=== PATIENT | female | born 1990 | race Caucasian/White ===

== ENCOUNTER → 2016-11-27 04:16 | Observation (INO) ==
--- NOTE | 2016-11-27 04:10 | OB/GYN Progress Note ---
Date of Encounter: 11/27/16 Time of Encounter: 04:07 - Assessment and Plan (1) 25 weeks gestation of Current Visit: Yes Status: Acute 26y/o @ 25 weeks presents to L&D with vag bleeding, she has a low lying placenta, SSE done and no blood noted in vault, cervix closed, NST reactive, ok for discharge
== END | disposition home or self-care (01) ==
LOC: 1NENULAB
PROVIDERS: ADMIT Student in an Organized Health Care Education/Training Program; ATTEND Student in an Organized Health Care Education/Training Program

== ENCOUNTER 2017-02-28 06:00 | Inpatient (IN) ==
[2017-02-28] MEDS ORDERED: Ondansetron 4 MG/2 ML VIAL IVP PRN ×2 (06:12→14:20)
[2017-02-28] MEDS ORDERED: Famotidine 20 MG/2 ML VIAL IVP PRN (06:12)
[2017-02-28] MEDS ORDERED: *HR* Nalbuphine 20 MG/ML AMPUL IVP PRN (06:12)
[2017-02-28] MEDS ORDERED: Naloxone 0.4 MG/ML INJ IVP PRN ×2 (06:12→14:20)
[2017-02-28] MEDS ORDERED: Metoclopramide 10 MG/2 ML VIAL IVP PRN (06:12)
[2017-02-28] MEDS ORDERED: miSOPROStol 100 MCG TABLET PO PRN (06:12)
[2017-02-28] MEDS ORDERED: Ringers Solution, Lactated 1,000 ML IVC SCH (06:15)
[2017-02-28 07:05] LABS: Amphetamine Screen,Urine Negative ng/mL (Cutoff=1000); Barbiturate Screen,Urine Negative ng/mL (Cutoff=200); Benzodiazepines Screen,Urine Negative ng/mL (Cutoff=200); Cannabinoid Screen,Urine Negative ng/mL (Cutoff = 50); Cocaine Screen,Urine Negative ng/mL (Cutoff= 300); Opiate Screen,Urine Negative ng/mL (Cutoff=300)
[2017-02-28 07:10] LABS: Basophils % 0.4 %; Eosinophils # 0.2 K/mcL (0.0-0.6); Eosinophils % 1.7 %; Hemoglobin 12.4 g/dL (11.5-15.4); Immature Granulocytes % 0.6 % (0-4); Lymphocytes # 2.7 K/mcL (0.6-4.6); Mean Corpuscular HGB Conc 33.5 g/dL (31.6-35.5); Mean Corpuscular Hemoglobin 30.4 pg (28.0-33.3); Mean Corpuscular Volume 90.7 fL (83.0-100.0); Mean Platelet Volume 9.3 fL (9.4-12.4); Monocytes # 0.9 K/mcL (0.0-1.3); Monocytes % 7.7 %; Neutrophils # 7.4 K/mcL (1.6-8.9); Platelet Count 248 K/mcL (140-400); Red Blood Count 4.08 M/mcL (3.82-4.97); Red Cell Distribution Width 13.7 % (11.5-14.5); Segmented Neutrophils % 65.6 %
--- NOTE | 2017-02-28 07:11 | OB/GYN History & Physical ---
Date of Encounter: 02/28/17 Time of Encounter: 07:40 Assessment and Plan (1) 39 weeks gestation of Current visit: Yes Status: Acute Plan: - admit to L&D - begin FHT - induction with Cytotec initiated - expectant management with possible augmentation with AROM and Pitocin - anticipate (2) Elective induction of labor planned Current visit: Yes Status: Acute (3) Hepatitis C Current visit: Yes Status: Acute Qualifiers: Viral hepatitis chronicity: unspecified Hepatic coma status: without hepatic coma Qualified Code(s): B19.20 - Unspecified viral hepatitis C without hepatic coma (4) Tobacco abuse Current visit: Yes Status: Acute (5) Grand multipara in labor in third trimester Current visit: Yes Status: Acute History of Present Illness Chief complaint: IOL HPI: Patient is a 26 y/o female at 39+3 weeks presented to labor and delivery for induction of labor. Patient's is complicated by tobacco use, suboxone use, Hep C, and grand multip. Reports active movement. Patient denies vaginal bleeding, contractions, leakage of fluids. Denies N/V, changes in vision, CARPENTER. Patient follows up with Dr. Segal. PNL: Blood type O+. GBS neg, RI, HBsAG neg, HIV neg. RPR neg. Past Med Surg Social Fam HX - Past Medical History Source: patient, old records reviewed Medical history: hepatitis (Hep C ) Psychiatric history: no psych history, other (suboxone use, hx of narcotic abuse ) - Past Surgical History Surgical History: appendectomy, other - Social History Smoking Status: Current every day smoker Packs per day: 1/2 pack Smokeless Tobacco Status: No Alcohol use: none Drug use: none - Family History Mother History Unknown: Yes Family Member Ethnicity: Non- Living Status: Still Living Obstetrical History - Pregnancies : 6 Para: 4 Term: 4 : 0 Ab's: 1 Livin - History/Complications History/Complications: Total pregnancies 6. Total living children 4. Miscarriage(s) 1. # 1: full term - induced at 40 weeks. Female; weight 5lb 4 oz. # 2: 38 weeks; female, weight 5 lb 6 oz. # 3 tubal pregnanacy--- 2008 left ??. # 4: 2008-- vag del male 5 lbs 8 oz-- at [place] [place]-- . # 5: 05-19-2010 vag del female 5 lbs 8 oz at [place] no complications-- short labor. Medications and Allergies Pnv62/FA/Om3/Dha/Epa/Fish Oil [[facility] Gummy Vitamins] 1 each PO DAILY 07/13 [History] Buprenorphine HCl [Subutex] 8 mg SL BID 02/28/17 [History] 3 Allergy/AdvReac Type Severity Reaction Status Date / Time No Known Allergies Allergy Verified 02/28/17 06:25 Review of System OB All systems PM: reviewed and no additional remarkable complaints except as stated Exam - Vital Signs Vital signs: BP: 125/55, HR: 73, afebrile - Constitutional Constitutional: well developed, well nourished, no acute distress, average body habitus - HEENT HEENT: Normocephaly, Mucus Membranes Moist - Neck Neck exam: full ROM - Lungs Respiratory exam: CTAB - Cardiovascular Cardiovascular exam: RRR - Breasts Breast: bilateral: normal - Abdomen Abdomen: Present: non tender. Absent: diffuse tenderness - Extremities Extremities exam: normal inspection - Vulva Vulva: bilateral: normal - Vagina Vagina: Present: normal moisture - Cervix Dilation: 2 (per nursing) Effacement: 80 (per nursing) Station: -1 - Uterus Uterus exam: Present: normal size Results Result Diagrams: 02/28/17 06:44 All other labs normal. - VTE Reasons for not Prescribing Prophylaxis: Treatment not Indicated - Low risk for VTE - Attending Attestation I examined this patient and my medical decision-making was reviewed with the Resident Physician. I agree with the documented findings, disposition and treatment plan as described. Margie Clark CNM
[2017-02-28] MEDS ORDERED: D5% in 0.45% NACL 1,000 ML IVC SCH (07:15)
[2017-02-28 07:33] LABS: Phencyclidine Screen,Urine Negative ng/mL (Cutoff=25)
[2017-02-28] MEDS ORDERED: Terbutaline 1 MG/ML VIAL SQ ONE ×2 (08:03→08:16)
--- NOTE | 2017-02-28 10:36 | Anesthesia Evaluation PreOp ---
Date of Encounter: 02/28/17 Time of Encounter: 10:20 - Past History Planned Operation: LI Cardiac History: Denies any Significant Hx Pulmonary History: Smoker, Pack/yr (6pk/yr) DIETITIAN HELPER History: Denies Any Significant HX Other Medical History: Hepatic (Hep C), Other (hx heroine use, Subutex use) Anesthesia History: No Prior Anesthetic Complications, Past Anesthesia ( previous epidurals, Tubal ) : Yes Alcohol Use: none Drug use: none (hx heroine use, currently using subutex), other Medications and Allergies Pnv62/FA/Om3/Dha/Epa/Fish Oil [[facility] Gummy Vitamins] 1 each PO DAILY 07/13 [History] Buprenorphine HCl [Subutex] 8 mg SL BID 02/28/17 [History] 3 Allergy/AdvReac Type Severity Reaction Status Date / Time No Known Allergies Allergy Verified 02/28/17 06:25 - Meds/Allergy Pre-op Review Medications Reviewed: Yes Allergies Reviewed: Yes Beta Blockers on Current Med List: No Anesthesia Results - Labs 02/28/17 06:44 Anesthesia Exam BP 110/63 P 71 T 98.1 R 16 Height: 5'4" Weight: 62.0kg NPO (# of Hours): 5hrs solids, clear liquids 0hrs Pain Scale: 2 Pain Scale Used: Numeric (1 - 10) - HEENT Pupil (Motor): Pupils equal Mallampati: II Teeth: Poor dentition Oral Opening: Greater than 3 - DIETITIAN HELPER LOC: Oriented DIETITIAN HELPER Motor: Normal RUE, Normal LUE, Normal RLE, Normal LLE, Normal Face DIETITIAN HELPER Sensory: Normal: RUE, LUE, RLE, LLE, Face - Cardiac Rhythm: Regular Murmur: None JVD: No Carotid Bruit: No - Pulmonary Breath Sounds: left Rhonchi, bilateral Clear Respiratory Effort: Symmetrical Anesthesia Assess/Plan ASA Score: 2 Modified [place] Scale for Level of Consciousness: Cooperative, oriented, and tranquil Anesthetic Plan: Regional Autologous Blood: No Monitoring Plan: Standard Monitors Recovery Plan: Other
--- NOTE | 2017-02-28 11:21 | OB Labor Progress Note ---
Date of Encounter: 02/28/17 Time of Encounter: 11:18 Labor Progress Note - Subjective Subjective: Patient breathing through contractions - Vital Signs Vital Signs: VSS - Cervix Cervix: 2/70/0 - Heart Tones Heart Tones: 155 moderate variability and 15 x15 accels. No decels - [place] Cent[place]: Contractions every 2-4 minutes - Plan Plan: Routine labor management Failed cytotec due to intolerance; will start pitocin GBS negative May have fentanyl and/or epidural upon request for pain control Anticipate vaginal delivery POC per consult with Dr Colón
[2017-02-28] MEDS: Oxytocin 20 units/ LR 1000 mL 20 UNIT/1,000 ML BAG IVC SCH ×2 (11:31→18:52)
--- NOTE | 2017-02-28 14:01 | OB Labor Progress Note ---
Date of Encounter: 02/28/17 Time of Encounter: 13:59 Labor Progress Note - Subjective Subjective: Patient resting comfortably in bed with peanut ball in place. - Vital Signs Vital Signs: VSS - Cervix Cervix: 2-/80/0 - Heart Tones Heart Tones: 140 moderate variability and 15 x 15 accels no decels - [place]: Contractions every 2 minutes lasting 45 seconds in length - Interventions Interventions: AROM for moderate amount of clear fluid. Shiav blood present with exam, bleeding stopped. IUPC placed without difficulty. Fetus and patient tolerated well. - Plan Plan: Continue routine management GBS negative Patient may have epidural upon request Continue pitocin for adequate contractions anticipate vaginal delivery POC per consult with Dr Colón
[2017-02-28] MEDS ORDERED: *HR* FentaNYL (PF) 100 MCG/2 ML VIAL EP ONE (14:20)
[2017-02-28] MEDS ORDERED: EPHEDrine 50 MG/ML VIAL IVP PRN (14:20)
[2017-02-28] MEDS ORDERED: Bupivacaine-MPF 0.25% 10 ML VIAL EP ONE (14:20)
[2017-02-28] MEDS ORDERED: Bupivacaine-MPF 0.25% 10 ML VIAL ONE (14:23)
[2017-02-28] MEDS ORDERED: *HR* FentaNYL (PF) 100 MCG/2 ML VIAL ONE (14:23)
[2017-02-28] MEDS ORDERED: Epidural Premix (fent/bupiv) 110 ML EP ONE (14:25)
[2017-02-28] MEDS ORDERED: Epidural Premix (fent/bupiv) 110 ML EP SCH (14:30)
--- NOTE | 2017-02-28 14:52 | Anesthesia Procedures ---
Date of Encounter: 02/28/17 Time of Encounter: 14:25 Procedures: Anesthesia - Epidural/Spinal Patient ID/Chart reviewed: Yes Patient examined: Yes OB Eval: Gestational age: 38 OB Eval: : 6 OB Eval: Hx Para: 5 OB Eval: Dilated at (cm): 2 OB Eval: Contractions: Non-stressed pattern Consent Obtained: Yes Supplemental Oxygen: None/Room Air Site Prep: Aseptic Technique, Sterile prep and drape, Povidone-Iodine 1% Patient position: upright Local Anesthetic: Lidocaine 1% Amount of Local Anesthetic used: 3 Touhy Needle Gauge: 18 Touhy Needle Depth (cm): 5 Catheter Depth at Skin (cm): 14 Test Dose (1.5% Lido + Epi): Volume given (mls): 3 Test Dose Result: Negative Loading Dose: 0.25% Marcaine (mls): 10 Loading Dose: Fentanyl (mcg): 100 Loading Dose Administered: Thru Catheter Infusion Med: 0.125% Bupivacaine w/ 2 mcg/ml Fentanyl Infusion Rate (mls/hr): [address]: Tegaderm, Tape Interspace Used: L4-L5 Loss of Resistance (TYRON): Yes Blood: No CSF: No Paresthesia: No Procedure: LI placed 1st pass without any immediate noted complications. VSS throughout. FHT 130s Vitals + FHT's: 1425 P 101 BP 119/86 1445 P 76 BP 114/71 R 16 FHT 130s
--- NOTE | 2017-02-28 18:08 | OB/GYN Procedure Note ---
Delivery - Delivery Date: 02/28/17 Provider: Munira Clark Intrapartum events: none Delivery induction: misoprostol Delivery augmentation: rupture of membranes, pitocin Delivery monitor: external FHT, external uterine, internal uterine Anesthesia: epidural Estimated Blood Loss: 200 - (s) A Infant Delivery Date: 02/28/17 Delivery Time: 17:39 Presentation: vertex Position: LEATHA Route of delivery: Gender: Female Viability: Viable Pounds: 6 Ounces: 8 Weight Gram: 2.945 kg at 1 minute: 8 at 5 mins: 9 Shoulder Dystocia: not encountered Specimens collected: cord blood Placenta: spontaneous Cord: 3 umbilical vessels (a) - Repair Episiotomy: none Laceration Description: None, Superficial - Complications Delivery complications: none Delivery comments: of vigorous viable female infant in the LEATHA position. Shoulders delivered easily. No nuchal. No meconium. No shoulder dystosia. Infant placed on mom's belly. Apgars 8/9 at 1 and 5 minutes. Cord double clamped and cut after pulsations ceased. Placenta delivered spontaneously appears grossly intact. 3 vessel cord present. Upon peritoneal inspection, several small superficial, hemostatic abrasions. Fundus firm and at u/2. EBL 200ml. delivery attended by Dr. Mirian Varma. Oh Clark CNM present in room for delivery. Dr. Colón notified. Infant and mother stable in recovery. Pericare instructions given to patient. - Disposition Mom disposition: stable in LDR disposition: stable in LDR
[2017-02-28] MEDS ORDERED: Benzocaine/Menthol 56 GM AEROSOL SPRAY TP PRN (19:26)
[2017-02-28] MEDS ORDERED: Acetaminophen 325 MG TABLET PO PRN (19:26)
[2017-02-28] MEDS ORDERED: Oxytocin 20 units/ LR 1000 mL 20 UNIT/1,000 ML BAG IVC SCH (19:26)
[2017-02-28] MEDS ORDERED: *HR* Buprenorphine HCl 8 MG TAB.SUBL SL SCH (21:00)
[2017-02-28] MEDS: *HR* Buprenorphine HCl 8 MG TAB.SUBL SL SCH (21:22)
[2017-02-28] MEDS: Ibuprofen 600 MG TABLET PO PRN (21:22)
[2017-03-01] MEDS: Ibuprofen 600 MG TABLET PO PRN (07:41)
[2017-03-01] MEDS: *HR* Buprenorphine HCl 8 MG TAB.SUBL SL SCH (07:42)
[2017-03-01 08:22] VITALS: BP 122/79
[2017-03-01] MEDS ORDERED: DHA PO SCH (09:00)
[2017-03-01] MEDS ORDERED: EPA PO SCH (09:00)
[2017-03-01] MEDS ORDERED: PNV62 PO SCH (09:00)
[2017-03-01] MEDS ORDERED: Prenatal Vit/FA 1 EACH TABLET PO SCH (09:00)
[2017-03-01] MEDS ORDERED: [UNRECOGNIZED DRUG - OTHER] PO SCH (09:00)
[2017-03-01] MEDS ORDERED: FISH OIL PO SCH (09:00)
--- NOTE | 2017-03-01 09:58 | Discharge Summary ---
Date of Encounter: 03/01/17 Time of Encounter: 09:55 - Discharge Diagnosis (1) Vaginal delivery Priority: Primary Status: Acute Comments: Pt meeting all milestones. She desires to guest today. (2) complicated by subutex maintenance, antepartum Priority: Secondary Status: Acute (3) Hepatitis C Priority: Secondary Status: Acute Qualifiers: Viral hepatitis chronicity: unspecified Hepatic coma status: without hepatic coma Qualified Code(s): B19.20 - Unspecified viral hepatitis C without hepatic coma (4) Tobacco abuse Priority: Secondary Status: Acute - Discharge Medications Prescriptions: Ibuprofen [Motrin] 600 mg PO Q6HR PRN #30 tablet PRN Reason: Cramping Docusate [Colace] 100 mg PO BID #30 capsule Home Medications: Pnv62/FA/Om3/Dha/Epa/Fish Oil [[facility] Gummy Vitamins] 1 each PO DAILY 07/13 [History] Buprenorphine HCl [Subutex] 8 mg SL BID 02/28/17 [History] Benzocaine/Menthol [place] [Dermoplast [place]] 1 appl TP QID PRN aerosol 03/01/17 [Rx] Docusate [Colace] 100 mg PO BID #30 capsule 03/01/17 [Rx] Ibuprofen [Motrin] 600 mg PO Q6HR PRN #30 tablet 03/01/17 [Rx] Allergies/Adverse Reactions: 3 Allergy/AdvReac Type Severity Reaction Status Date / Time No Known Allergies Allergy Verified 02/28/17 06:25 Data Procedures and tests throughout hospitalization: Laboratory Tests 02/28/17 02/28/17 06:44 06:44 WBC 11.2 H RBC 4.08 Hgb 12.4 Hct 37.0 MCV 90.7 MCH 30.4 MCHC 33.5 RDW 13.7 Plt Count 248 MPV 9.3 L Immature Gran % 0.6 Seg Neutrophils % 65.6 Lymphocytes % 24.0 Monocytes % 7.7 Eosinophils % 1.7 Basophils % 0.4 Neutrophils # 7.4 Lymphocytes # 2.7 Monocytes # 0.9 Eosinophils # 0.2 Basophils # 0.0 Urine Opiates Screen Negative Ur Barbiturates Screen Negative Ur Phencyclidine Scrn Negative Ur Amphetamines Screen Negative U Benzodiazepines Scrn Negative Urine Cocaine Screen Negative U Marijuana (THC) Screen Negative Date of admission: 02/28/17 06:10 Primary care physician: Marina Rucker CNP Consults: 02/28/17 19:26 Consult to Car Worker [CONS] Routine Reason for SW Consult: suboxone use Discharging clinician: Bobbi Christensen Anticipated date of discharge: 03/01/17 - Patient Status Disposition: Home, Self-Care Condition: Good Functional capacity at discharge: independent ambulation Overall status at discharge: patient is progressing back to baseline - Discharge Instructions Follow Up With: Mairna Rucker CNP [Primary Care Provider] - Steve Segal DO [Partnered Physician] - - Diet and Activity Activity: increase activity as tolerated Diet: regular diet Hospital Course Reason for admission: induction of labor Delivery: Episiotomy: none Laceration: none Other procedures: none complications: none Discharge diagnosis: IUP at term delivered baby: female Hospital course: - Delivery Date: 02/28/17 Provider: Munira Clark Intrapartum events: none Delivery induction: misoprostol Delivery augmentation: rupture of membranes, pitocin Delivery monitor: external FHT, external uterine, internal uterine Anesthesia: epidural Estimated Blood Loss: 200 - Infant (s) Infant A Infant Delivery Date: 02/28/17 Delivery Time: 17:39 Presentation: vertex Position: LEATHA Route of delivery: Gender: Female Viability: Viable Pounds: 6 Ounces: 8 Weight Gram: 2.945 kg at 1 minute: 8 at 5 mins: 9 Shoulder Dystocia: not encountered Specimens collected: cord blood Placenta: spontaneous Cord: 3 umbilical vessels (a) - Repair Episiotomy: none Laceration Description: None, Superficial - Complications Delivery complications: none - Disposition Mom disposition: discharged home PPD#1, bottle feeding, depo provera given for contraception prior to discharge [place] disposition: in nursery for MICHAEL monitoring Time Attestation: Total time spent providing and/or coordinating discharge services: Time Spent: Less than 30 minutes Exam - Constitutional Vitals: Temp Pulse Resp BP Pulse Ox 98.0 F 79 16 122/79 99 03/01/17 08:21 03/01/17 08:21 03/01/17 08:21 03/01/17 08:21 02/28/17 22:20 General appearance IM: A&O X 3 - Respiratory Respiratory exam: Present: CTAB - Cardiovascular Cardiovascular exam IM: Present: RRR, +S1, +S2 - GI/Abdominal GI/Abdominal exam IM: soft - Rectal Rectal exam: deferred - Uterine Tone: Firm Uterus Position: 1 Finger Below Umbilicus - Extremities Exam Extremities exam IM: Present: normal inspection - Neurological Exam Neurological exam: normal gait, oriented X3 - Psychiatric Additional comments: reports good mood
== END 2017-03-01 12:00 | disposition home or self-care (01) | DRG 560 ==
LOC: 1NENULAB 06:10 → 1NENUOBS 20:22
PROVIDERS: ADMIT Obstetrics & Gynecology; ATTEND Obstetrics & Gynecology

== ENCOUNTER 2020-01-02 16:24 | Inpatient (IN) ==
[~2020-01-02 16:24] MED LIST: EPHEDrine 50 MG/ML VIAL IVP PRN; Epidural Premix (fent/bupiv) 110 ML EP SCH; Famotidine 20 MG/2 ML VIAL IVP PRN; Metoclopramide 10 MG/2 ML VIAL IVP PRN; Naloxone 0.4 MG/ML INJ IVP PRN; Ondansetron 4 MG/2 ML VIAL IVP PRN; Oxytocin 20 units/ LR 1000 mL 20 UNIT/1,000 ML BAG IVC SCH
[2020-01-02 16:34] LABS: Basophils # 0.1 K/mcL (0.0-0.2); Basophils % 0.4 %; Eosinophils # 0.2 K/mcL (0.0-0.6); Eosinophils % 1.2 %; Hematocrit 36.3 % (35.3-44.9); Hemoglobin 11.9 g/dL (11.5-15.4); Immature Granulocytes % 0.9 % (0-4); Lymphocytes # 2.9 K/mcL (0.6-4.6); Lymphocytes % 20.2 %; Mean Corpuscular HGB Conc 32.8 g/dL (31.6-35.5); Mean Corpuscular Hemoglobin 30.9 pg (28.0-33.3); Mean Corpuscular Volume 94.3 fL (83.0-100.0); Mean Platelet Volume 9.7 fL (9.4-12.4); Monocytes # 0.9 K/mcL (0.0-1.3); Neutrophils # 10.3 K/mcL (1.6-8.9); Platelet Count 247 K/mcL (140-400); Red Blood Count 3.85 M/mcL (3.82-4.97); Red Cell Distribution Width 13.4 % (11.5-14.5); Segmented Neutrophils % 71.3 %; White Blood Count 14.4 K/mcL (4.3-11.1)
[2020-01-02 16:49] LABS: Amphetamine Screen,Urine Negative ng/mL (Cutoff=1000); Barbiturate Screen,Urine Negative ng/mL (Cutoff=200); Benzodiazepines Screen,Urine Negative ng/mL (Cutoff=200); Cannabinoid Screen,Urine Negative ng/mL (Cutoff = 50); Cocaine Screen,Urine Negative ng/mL (Cutoff= 300); Opiate Screen,Urine Negative ng/mL (Cutoff=300); Phencyclidine Screen,Urine Negative ng/mL (Cutoff=25)
[2020-01-02] MEDS: Ringers Solution, Lactated 1,000 ML IVC SCH ×2 (16:53→19:46)
[2020-01-03] MEDS: Ringers Solution, Lactated 1,000 ML IVC SCH (00:23)
[2020-01-03] MEDS ORDERED: Oxytocin 20 units/ LR 1000 mL 20 UNIT/1,000 ML BAG IVC SCH (06:16)
[2020-01-03] MEDS ORDERED: Ibuprofen 600 MG TABLET PO PRN (06:16)
[2020-01-03] MEDS ORDERED: Acetaminophen 325 MG TABLET PO PRN (06:16)
[2020-01-03] MEDS ORDERED: Measles/Mumps/Rubella Vacc 0.5 ML VIAL SQ PRN (06:16)
[2020-01-03] MEDS: Prenatal Vit/FA 1 EACH TABLET PO SCH (08:22)
[2020-01-03] MEDS: *HR* Buprenorphine HCl 8 MG TAB.SUBL SL SCH ×2 (08:23→20:53)
[2020-01-04 06:32] LABS: Basophils # 0.1 K/mcL (0.0-0.2); Basophils % 0.7 %; Eosinophils # 0.4 K/mcL (0.0-0.6); Eosinophils % 2.7 %; Hematocrit 33.1 % (35.3-44.9); Immature Granulocytes % 0.7 % (0-4); Lymphocytes # 3.4 K/mcL (0.6-4.6); Lymphocytes % 26.2 %; Mean Corpuscular HGB Conc 33.2 g/dL (31.6-35.5); Mean Corpuscular Hemoglobin 31.8 pg (28.0-33.3); Mean Corpuscular Volume 95.7 fL (83.0-100.0); Mean Platelet Volume 9.4 fL (9.4-12.4); Monocytes # 0.9 K/mcL (0.0-1.3); Monocytes % 6.6 %; Neutrophils # 8.2 K/mcL (1.6-8.9); Platelet Count 208 K/mcL (140-400); Red Blood Count 3.46 M/mcL (3.82-4.97); Red Cell Distribution Width 13.3 % (11.5-14.5); Segmented Neutrophils % 63.1 %; White Blood Count 12.9 K/mcL (4.3-11.1)
[2020-01-04] MEDS: Prenatal Vit/FA 1 EACH TABLET PO SCH (07:31)
[2020-01-04] MEDS: *HR* Buprenorphine HCl 8 MG TAB.SUBL SL SCH (07:31)
[2020-01-04 08:01] VITALS: BP 109/74
== END 2020-01-04 11:07 | disposition home or self-care (01) | DRG 560 ==
LOC: 1NENULAB → 1NENUOBS 01-03 06:16
PROVIDERS: ADMIT Obstetrics & Gynecology; ATTEND Obstetrics & Gynecology